=== PATIENT | male | born 1945 ===

== ENCOUNTER 2017-11-11 14:54 | Emergency (ER) | payer MEDICARE ==
[2017-11-11 15:21] VITALS: BP 124/83
--- NOTE | 2017-11-11 15:23 | UC ---
Ear Complaint HPI - HPI Summary HPI Summary: 72 yo male presents with b/l ear pain. He tells me that he has a history of cerumen impaction and earlier today noticed increased ear pain and decreased hearing R>L. Denies headache, dizziness, fever, or chills. - History of Current Complaint Chief Complaint: UCEar Stated Complaint: EAR COMPLAINT Time Seen by Provider: 11/11/17 15:23 Hx Obtained From: Patient Onset/Duration: Sudden Onset Severity Initially: Mild Severity Currently: Mild Pain Intensity: 3 Pain Scale Used: 0-10 Numeric - Allergies/Home Medications Allergies/Adverse Reactions: Allergies Allergy/AdvReac Type Severity Reaction Status Date / Time No Known Allergies Allergy Verified 11/11/17 15:21 PMH/Surg Hx/FS Hx/Imm Hx - Additional Past Medical History Additional PMH: None Previously Healthy: Yes - Surgical History Surgical History: None - Family History Known Family History: Positive: None - Social History Occupation: Retired Lives: With Family Alcohol Use: None Substance Use Type: None Smoking Status (MU): Never Smoked Tobacco - Immunization History Most Recent Tetanus Shot: 8 years Review of Systems Constitutional: Negative Skin: Negative Eyes: Negative ENT: Ear Ache Respiratory: Negative Cardiovascular: Negative Gastrointestinal: Negative Neurovascular: Negative Neurological: Negative Psychological: Negative All Other Systems Reviewed And Are Negative: Yes Physical Exam - Summary Physical Exam Summary: GENERAL: NAD. WDWN. No pain distress. SKIN: No rashes, sores, lesions, or open wounds. HEENT: Ears: Hearing mildly decreased. B/L cerumen impaction. After disimpaction: TMs WNL and intact without erythema. Nose: Nasal mucosa pink and moist. NTTP maxillary and frontal sinus. Throat: Posterior oropharynx without exudates, erythema, or tonsillar enlargement. Uvula midline. NECK: Supple. Nontender. No lymphadenopathy. CHEST: No accessory muscle use. Breathing comfortably and in no distress. CV: Pulses intact. Brisk cap refill. NEURO: Alert. CN II-XII grossly intact. PSYCH: Age appropriate behavior. Triage Information Reviewed: Yes Vital Signs: Initial Vital Signs Temp 98.4 F 11/11/17 15:17 Pulse 74 11/11/17 15:17 Resp 15 11/11/17 15:17 BP 124/83 11/11/17 15:17 Pulse Ox 100 11/11/17 15:17 Ear Complaint Course/Dx - Course Course Of Treatment: Cerumen impaction. Ear irrigation was performed and cerumen easily removed. Pt tolerated well and experienced great relief. - Differential Dx/Diagnosis Provider Diagnoses: Cerumen impaction Discharge - Sign-Out/Discharge Documenting (check all that apply): Discharge/Admit/Transfer - Discharge Plan Condition: Stable Disposition: HOME Patient Education Materials: Cerumen Impaction (ED) Referrals: No Primary Care Phys,NOPCP [Primary Care Provider] - Additional Instructions: If you develop a fever, shortness of breath, chest pain, new or worsening symptoms - please call your PCP or go to the ED. - Billing Disposition and Condition Condition: STABLE Disposition: Home
== END 2017-11-11 16:25 | disposition home or self-care (01) ==
LOC: UCEAST 14:54
DX: H61.23 Impacted cerumen, bilateral (principal)
CPT/HCPCS: 99213; G0463